=== PATIENT | female | born 1990 | race Caucasian/White ===

== ENCOUNTER → 2022-03-22 10:42 | Outpatient (CLI) | payer OTHER, SELFPAY ==
--- NOTE | 2022-03-22 | DI.US.S_ITS ---
PROCEDURE: US OB >= 14 WEEKS FETUS INDICATIONS: 20 WEEK ANATOMY SCAN OUTSIDE/PRIOR DATING DATA: Last menstrual period (LMP): October 29, 2021. LMP-based estimated date of delivery (ROSEMARY): August 05, 2022. First dating scan (date and location): [facility], March 22, 2022. Estimated date of delivery (ROSEMARY) from first dating scan: TECHNIQUE: Real-time scanning was performed of the fetus, with image documentation and biometric measurements. Endovaginal scanning: Not performed COMPARISON: None. FINDINGS: General: A single living intrauterine gestation is present. Presentation: Vertex. Placenta: Placental position is posterior , without previa. Amniotic fluid index: 16 cm, normal range is 5-24 cm. heart rate: 140 beats per minute. Maternal cervical canal: 5.2 cm long. Normal lower limit is 2.5 cm. biometrics: Biparietal diameter: 5.0 cm, 21 weeks, 1 day Head circumference: 18.6 cm, 20 weeks, 6 days Abdominal circumference: 16.4 cm, 21 weeks, 3 days Femur length: 3.4 cm, 20 weeks, 5 days Clinically estimated gestational age: 21 weeks, 0 days Composite gestational age from present scan: 21 weeks, 0 days Estimated weight and percentile: 400 g, 67% Anatomic survey: Neuro: Ventricles are non-dilated at less than 10 mm. Cisterna magna is normal at 3-11 mm. Cerebellum is normal in size and morphology. Nuchal skin fold: Normal at less than 6 mm between 14-21 weeks gestational age. Face: Nose and lips, facial profile are normal. Spine: No evidence for spina bifida. Heart: 4-chambered heart is present, with normal ventricular outflow tracts. Diaphragm: Diaphragm is intact. Stomach: Left-sided stomach is present. Kidneys: No hydronephrosis. Normal is less than 5 mm in 2nd trimester, less than 7 mm in 3rd trimester. Cord: 3-vessel cord has orthotopic insertion. Bladder: Normal in size. Extremities: All 4 extremities identified. IMPRESSION: No sonographic anatomic abnormalities. We strive to produce accurate, complete, and clear reports of imaging services. To assist us in improving patient care, this report was composed using standard report templates and voice recognition software. Therefore, it may contain abnormal punctuation, insertions and/or omissions. Occasional wrong-word or sound-alike substitutions may occur. Though we review the report and make efforts to correct it, we do recommend that the report be read carefully in proper context to recognize any text inaccuracies. Dictated by: Temitope Bennett M.D. on 03/22/2022 at 17:20 Approved by: Temitope Bennett M.D. on 03/22/2022 at 17:24
== END ==
LOC: US 10:46
PROVIDERS: Referring Provider Nurse Practitioner Obstetrics & Gynecology; Visit Provider Nurse Practitioner Obstetrics & Gynecology
DX: Z34.92 Encounter for supervision of normal pregnancy, unspecified, second trimester (principal); Z3A.21 21 weeks gestation of pregnancy
CPT/HCPCS: 76801; 76811

== ENCOUNTER → 2022-05-03 06:52 | Outpatient (CLI) | payer OTHER, SELFPAY ==
[2022-05-03 07:51] LABS: Hematocrit 32.5 % (36-46); Hemoglobin 11.4 g/dL (12.0-16.0); Mean Corpuscular HGB Conc 35.1 % (30-36); Mean Corpuscular Hemoglobin 30.4 PG (26-34); Mean Corpuscular Volume 86.4 fL (80-100); Platelet Count 157 X10^3/uL (150-400); Red Blood Cell Count 3.76 X10^6/uL (4.0-5.2); Red Cell Distribution Width 13.3 % (11.6-14.8); White Blood Cell Count 10.2 X10^3/uL (4.5-11.0)
[2022-05-03 08:26] LABS: Glucose Fasting 112 mg/dL (70-100)
[2022-05-03 09:23] LABS: Glucose Tol Interpretation INTERPRETATION
[2022-05-03 09:44] LABS: Glucose 1 Hour 190 mg/dL (70-170)
[2022-05-03 10:31] LABS: Glucose 2 Hour 178 mg/dL (70-140)
== END ==
PROVIDERS: Referring Provider Nurse Practitioner Obstetrics & Gynecology; Visit Provider Nurse Practitioner Obstetrics & Gynecology
DX: Z34.90 Encounter for supervision of normal pregnancy, unspecified, unspecified trimester (principal); Z13.1 Encounter for screening for diabetes mellitus; Z3A.26 26 weeks gestation of pregnancy
CPT/HCPCS: 36415; 82951; 82952; 85027

== ENCOUNTER → 2022-05-11 15:20 | Outpatient (CLI) | payer OTHER, SELFPAY ==
--- NOTE | 2022-05-12 17:29 | DIAB.GDA ---
Initial Gestational Diabetes Assessment Name: Gris Alcantara Date: 05/11/22 Time: 340-5p Dx: Gestational Diabetes Provider: Nayeli Bennett Weeks: 28 Gris presents today for initial visit regarding GDM. Denies T2Dm in family, maternal grandmother with PDm. Possible PMH of PCOS per her report (h/o struggling with wt and hirsutism). Is tearful today recalling the way she was eating prior to diagnosis. Feels responsible for diagnosis. Discussed this in depth. Tracking food intake. Great veggie intake. Choosing high fiber foods. Pairing pro with carbs. Current carb intake is moderate to low for . Certainly could increase carb intake at lunch or dinner (15-20g per serving). Gris is having significant hyperglycemia in the morning likely r/t hormones. Does not appear to be over eating carbs. Reports regular activity. Anthropometrics: Ht: 67 Wt: 212# (last visit - reported) Prepregnancy wt: 195# Physical Activity: walking g1.5 mi in the morning daily. Planning on adding evening walk. Self-Monitoring Blood Glucose: 04/25 elevated FBG, 04/25 elevatev pc breakfast, / elevated lunch, no elevations at dinner. Current BG pattern seems consistent with hormones impacting insulin resistance. would likely benefit form medication management. Date Pre Post Pre Post Pre Post HS 05/05 110 130 84 124 05/06 95 129 107 119 05/07 108 151 110 118 05/08 110 148 117 100 05/09 115 157 114 111 05/10 113 117 143 80 05/11 128 143 91 Diabetes Medications: None Pertinent Labs: OGTT: 112, 190, 178 Intervention: This participant was very receptive. Provided appropriate educational handouts. Discussed the following topics: GDM pathophysiology and impact of hyperglycemia on mom and baby Emotions about GDM diagnosis and the hormone/genetic implications, héctor if PCOS is a factor Risk for T2DM for mom and baby in the future Ways to reduce risk T2DM Plate Method, meal timing, carb counting, pairing macronutrients and spreading out CHO for better BG management Blood glucose goals (FBG: <95 and 1 hour <140 mg/dL); importance of checking 4x per day (FBG and pc) Impact of macronutrients on blood glucose Recommended servings for carbohydrates at meals and snacks Brainstormed appropriate meal plan based on her food preferences Discussed medication options during and encouraged her to discuss further with provider Role of physical activity and following provider guidelines for safety Goals: Add some carbs to lunch and dinner Walk after dinner Follow-up: AMBROSIO NEWELL follow-up call in one week and then 1:1 2 weeks after. Plans to see provider next week. Encouraged her to report FBG this week to provider. Gris has implemented a great diet, though low in carb for due to fear of hyperglycemia. Seems she would benefit from medication management. Lifestyle blankenship she is doing well. Encouraged her to reach sooner prn. Bree Arguello RDN, [facility] Certified Diabetes Care and Order Selector T: [phone] F: [phone] [email or web address] Thank you for this referral
== END ==
LOC: DIET 15:22
PROVIDERS: Referring Provider Nurse Practitioner Obstetrics & Gynecology; Visit Provider Nurse Practitioner Obstetrics & Gynecology
DX: O24.419 Gestational diabetes mellitus in pregnancy, unspecified control (principal); Z3A.28 28 weeks gestation of pregnancy; Z71.3 Dietary counseling and surveillance
CPT/HCPCS: G0108

== ENCOUNTER 2022-07-21 14:41 | Outpatient (CLI) | payer OTHER, SELFPAY ==
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
== END 2022-07-21 15:37 | disposition home or self-care (01) ==
LOC: LABOR 14:55 → OB 07-25 14:11
PROVIDERS: Referring Provider Nurse Practitioner Obstetrics & Gynecology; Visit Provider Nurse Practitioner Obstetrics & Gynecology
DX: O24.414 Gestational diabetes mellitus in pregnancy, insulin controlled (principal); Z3A.37 37 weeks gestation of pregnancy
CPT/HCPCS: 59025; G0378; G0379

== ENCOUNTER → 2022-07-25 14:52 | Outpatient (CLI) | payer OTHER, SELFPAY ==
--- NOTE | 2022-07-25 14:55 | DI.US.S_ITS ---
PROCEDURE: US OB LIMITED INDICATIONS: BIOPHYSICAL PROFILE. GROWTH. GESTATIONAL DIABETES. OUTSIDE/PRIOR DATING DATA: Last menstrual period (LMP): October 29, 2021. LMP-based estimated date of delivery (ROSEMARY): August 05, 2022. First dating scan (date and location): March 22, 2022, [facility]. Estimated date of delivery (ROSEAMRY) from first dating scan: August 02, 2022. TECHNIQUE: Real-time scanning was performed of the fetus, with image documentation and biometric measurements. Biophysical profile was also obtained. COMPARISON: None. FINDINGS: General: A single living intrauterine gestation is present. Presentation: Vertex. Placenta: Placental position is posterior , without previa. Amniotic fluid index: 11.9 cm, normal range is 5-24 cm. Single deepest vertical pocket is 6.4 cm. heart rate: 132 beats per minute. Maternal cervical canal: Not well visualized biometrics: Biparietal diameter: 9.3 cm, 38 weeks, 0 days Head circumference: 33.3 cm, 38 weeks, 0 days Abdominal circumference: 35.1 cm, 39 weeks, 0 days Femur length: 7.3 cm, 37 weeks, 3 days Clinically estimated gestational age: 38 weeks, 3 days Composite gestational age from present scan: 38 weeks, 1 day Estimated weight and percentile: 3483 g, 65% Biophysical profile: Tone: 0 points. Movement: 2 points. Respiration: 2 points. Largest pocket of fluid: 2 points. Miscellaneous: The right renal pelvis measures 11 mm in diameter in the left renal pelvis measures 11.5 mm in diameter. IMPRESSION: 1. Single live intrauterine gestation with a 6/8 biophysical profile. 2. Dilated renal pelves. Continued sonographic follow-up and follow-up recommended. 3. Appropriate growth at the 65th percentile for weight. We strive to produce accurate, complete, and clear reports of imaging services. To assist us in improving patient care, this report was composed using standard report templates and voice recognition software. Therefore, it may contain abnormal punctuation, insertions and/or omissions. Occasional wrong-word or sound-alike substitutions may occur. Though we review the report and make efforts to correct it, we do recommend that the report be read carefully in proper context to recognize any text inaccuracies. Dictated by: Temitope Bennett M.D. on 07/25/2022 at 16:51 Approved by: Temitope Bennett M.D. on 07/25/2022 at 16:55
== END ==
PROVIDERS: Referring Provider Nurse Practitioner Obstetrics & Gynecology; Visit Provider Nurse Practitioner Obstetrics & Gynecology
DX: O09.93 Supervision of high risk pregnancy, unspecified, third trimester (principal); O24.414 Gestational diabetes mellitus in pregnancy, insulin controlled; Z3A.38 38 weeks gestation of pregnancy
CPT/HCPCS: 76815; 76819

== ENCOUNTER 2022-07-28 07:05 | Inpatient (IN) | payer OTHER, SELFPAY ==
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
[2022-07-28 09:00] LABS: COVID19 -Nasal RAPID Negative (Negative)
--- NOTE | 2022-07-28 12:17 | PM.OBPNLAB ---
Date/Time Date Patient Seen: 07/28/22 Time Patient Seen: 12:00 Pain Control Pain control: tolerating well Comments: Was able to go to breakfast with increasing contraction frequency and intensity. Johnson balloon came out with lots of bloody show at 1140. Contractions have persisted, but are less intense. VS: BP 133/80, HR 88bpm, T 36.1C Temporal. Pelvic Exam Dilation (cm): 6 Effacement (%): 80 station: -2 Amniotic membrane status: Intact Contractions Monitor mode: External Pitocin rate (mU/min): 0 Contraction frequency (min): 3 Contraction duration (min): 1 Contraction pattern: Regular Contraction intensity: Mild Status status: Category l Heart Rate Baseline: 130 Monitor Accelerations: Present Monitor Decelerations: Absent Monitor Variability: Moderate Assessment and Plan Assessment: induction ongoing Plan: begin patient augmentation Comments: RN now available for IOL. IV and labs, then pitocin augmentation, per protocol. Consultation requested w/ for management of GDMA2. Labor support PRN. Reassess in 4 hours or sooner, PRN.
[2022-07-28 13:48] LABS: Add Manual Diff / Slide Review NO; Basophils Absolute Auto 0 /uL (0-100); Basophils Percent Auto 0.3 % (0-2); Eosinophils Absolute Auto 100 /uL (0-450); Eosinophils Percent Auto 0.4 % (2-4); Hematocrit 35.2 % (36-46); Hemoglobin 11.8 g/dL (12.0-16.0); Lymphocytes Absolute Auto 1400 /uL (1100-4500); Mean Corpuscular HGB Conc 33.4 % (30-36); Mean Corpuscular Volume 83.9 fL (80-100); Monocytes Absolute Auto 500 /uL (0-900); Monocytes Percent Auto 3.9 % (3-14); Neutrophils Absolute Auto 11900 /uL (1500-7000); Neutrophils Percent Auto 85.4 % (50-75); Platelet Count 186 X10^3/uL (150-400); Red Cell Distribution Width 14.7 % (11.6-14.8)
[2022-07-28] MEDS: OXYTOCIN PREMIX 30 UNIT/500 ML PLAST..BAG IV (13:58)
[2022-07-28 14:44] VITALS: BP 130/82
--- NOTE | 2022-07-28 16:35 | PM.OBPNLAB ---
Date/Time Date Patient Seen: 07/28/22 Time Patient Seen: 16:35 Pain Control Pain control: tolerating well Comments: Moving, sitting on a ball and ambulating in her room. Feeling frequent, mild contractions, still not as strong as before the balloon came out. VS: BP 130/82, HR 92bpm, T 36.2C Temporal Pelvic Exam Dilation (cm): 6 Effacement (%): 80 station: -2 Amniotic membrane status: Intact Comments: CE Deferred, no change in contraction intensity Contractions Monitor mode: External Pitocin rate (mU/min): 12 Contraction frequency (min): 2 Contraction pattern: Regular Contraction intensity: Mild Status status: Category l Heart Rate Baseline: 135 Monitor Accelerations: Present Monitor Decelerations: Absent Monitor Variability: Moderate Assessment and Plan Assessment: induction ongoing Plan: continuous present management Comments: Will consider AROM if contractions do not become stronger in the next 2 hours. Reassess in 2 hours.
--- NOTE | 2022-07-28 22:51 | P.PCNOB_ITS ---
Events: Gestational Diabetes Labor & Delivery Delivery date: 07/28/22 Intrapartal Events: None Cervical ripening method: per Johnson bulb protocol Induction method: per pitocin protocol Delivery augmentation: rupture of membranes Delivery monitor: external FHT and external uterine Route of delivery: Episiotomy description: None L&D Laceration Description: Perineal - 1st Degree Delivery repair: chromic (3.0) Quantitative Blood Loss: 200 Anesthesia Type: None Narrative: Gris labored well without anesthesia. She got out of the tub with increased rectal pressure and moved to the bed. Pitocin had been decreased to 6mu/min by that time (max dose 16mu/min). Was presumed complete with spontaneous urge to push. Pushed effectively with coaching and encouragement. NSVB of a vigorous baby boy in ML position, sommersaulted through a single loose nuchal cord. Shoulder's required McRobert's maneuver. was placed on maternal abdomen for drying and skin to skin. Pitocin was increased to 250mL/hr for AMTSL. After cessation of pulsation, the cord was double clamped by CNM and cut by patient's mother. Cord blood sample was collected. Gentle cord traction and a single maternal push led to spontaneous, Schultze delivery of an apparently intact placenta, membranes and 3VC. Vagina and perineum inspected and 1st degree perineal laceration repaired under 1% lidocaine local with 3.0 Chromic in the usual fashion. Good approximation and hemostasis achieved. QBL 200mL. Both mother and baby stable and skin to skin as I left the room. [place] Baby 1: gender: Male Presentation: vertex Position: Right Occiput Anterior Placenta delivery description: Spontaneous Cord Vessel Description: 3 Vessels, Nuchal Cord and Loose score (1 min): 8 score (5 min): 9 weight: 3.524 kg Plan for aftercare: Routine care
[2022-07-29] MEDS: KETOROLAC 30 MG/ML VIAL IV (01:00)
[2022-07-29] MEDS: IBUPROFEN 600 MG TABLET PO (10:59)
--- NOTE | 2022-07-29 17:01 | P.DS_ITS ---
Discharge Providers Provider Date of admission: 07/28/22 07:05 Discharge Date: 07/29/22 Primary care physician: Doctor Sara MD Consults: 07/29/22 22:49 Consult to Acute Dialysis Registered Nurse Routine Comment: Discharge provider: Nayeli Bennett CNM Summary Hospital Course Date Patient Seen: 07/29/22 Time Patient Seen: 17:01 Diagnoses: O70.0 Hospital Course: PPD1: Stable s/p NSVB w/ 1st degree perineal laceration. Voiding, ambulating and independently. Tolerating a general diet. Pain is well controlled w/ PO medication. Vaginal bleeding is light, without clots. Eager for discharge to home. Peripartum Data Delivery Method: Natural Vaginal Laceration Description: Perineal - 1st Degree Episiotomy description: None 1: Gender: Male Disposition of : home Discharge Diagnosis (1) First degree perineal laceration during delivery: Status: Acute Time Spent with Patient Time attestation: Total time spent providing and/or coordinating discharge services: Objective Labs Result Diagrams: 07/28/22 13:15 Exam Vital Signs (past 8 hours): BP 115/78, HR 99bpm, RR 16/min, T 97.1F Temporal Other: Fundus form @ u-1, lochia scant, no clots, perineum well approximated Discharge Plan Discharge Plan Patient Disposition: Home Discharge orders & Medications Prescriptions: New ibuprofen 600 mg Tablet 600 mg PO Q6HR PRN (Reason: Pain, Mild (1-3)) 14 Days Qty: 40 0RF Discontinued Levemir FlexTouch U-100 Insuln 100 unit/mL (3 mL) insulin pen SUBCUT metformin 500 mg tablet 1,500 mg Follow up/Referrals: Doctor Ruiz MD [Primary Care Provider] - Nayeli Bennett CNM [[facility]] - (Follow-up by Telehealth 08/11/22 @ 2:15pm Follow-up in office 09/09/22 @ 10:15am) Diet/Activity/Treatments Diet: Regular Skin/Wound/Dressing Care Report to your healthcare provider any signs of infection, such as:: chills, fever, increased pain, unusual drainage and unusual redness Visit Report/Discharge Packet Instructions: DI for Depression Discharge Data Primary Care Provider: Doctor Sara
== END 2022-07-29 18:45 | disposition home or self-care (01) | DRG 807 ==
PROVIDERS: Admitting Provider Nurse Practitioner Obstetrics & Gynecology; Referring Provider Nurse Practitioner Obstetrics & Gynecology; Visit Provider Nurse Practitioner Obstetrics & Gynecology
DX: O24.424 Gestational diabetes mellitus in childbirth, insulin controlled (principal); Z37.0 Single live birth; Z3A.38 38 weeks gestation of pregnancy; Z79.84 Long term (current) use of oral hypoglycemic drugs; Z79.4 Long term (current) use of insulin; O70.0 First degree perineal laceration during delivery; O69.81X0 Labor and delivery complicated by cord around neck, without compression, not applicable or unspecified; Z20.822 Contact with and (suspected) exposure to COVID-19
CPT/HCPCS: 36415; 59050; 85025; 86850; 86900; 86901; 87635; C9803; G0379; J1885; J2590

== ENCOUNTER → 2022-11-03 07:28 | Outpatient (CLI) | payer OTHER, SELFPAY ==
[2022-11-03 09:51] LABS: Glucose Tol Interpretation INTERPRETATION
[2022-11-03 10:38] LABS: Glucose 1 Hour 128 mg/dL (70-170)
[2022-11-03 10:43] LABS: Glucose Fasting 90 mg/dL (70-100)
[2022-11-03 12:37] LABS: Glucose 2 Hour 113 mg/dL (70-140)
== END ==
PROVIDERS: Referring Provider Nurse Practitioner Obstetrics & Gynecology; Visit Provider Nurse Practitioner Obstetrics & Gynecology
DX: Z13.1 Encounter for screening for diabetes mellitus (principal); Z86.32 Personal history of gestational diabetes
CPT/HCPCS: 36415; 82951; 82952

== ENCOUNTER → 2024-10-13 07:11 | Outpatient (CLI) | payer OTHER, SELFPAY ==
--- NOTE | 2024-10-13 | DI.US.S_ITS ---
PROCEDURE: US OB >= 14 WEEKS FETUS INDICATIONS: 20WK ANATOMY SCAN OUTSIDE/PRIOR DATING DATA: Last menstrual period (LMP): 05/14/2024 LMP-based estimated date of delivery (ROSEMARY): 02/18/2025 The calculations are made using the working ROSEMARY of 02/18/2025 TECHNIQUE: Real-time scanning was performed of the fetus, with image documentation and biometric measurements. Endovaginal scanning: Not performed COMPARISON: [facility], , OB >= 14 WEEKS FETUS, 03/22/2022, 12:16. FINDINGS: General: A single living intrauterine gestation is present. Presentation: Breech Placenta: Placental position is posterior, without previa. Amniotic fluid index: 16.3 cm, normal range is 5-24 cm. Single deepest vertical pocket is 4.9 cm. heart rate: 155 beats per minute. Maternal cervical canal: Closed and measures 5.8 cm long. Normal lower limit is 2.5 cm. biometrics: Biparietal diameter: 5.3 cm, 22 weeks, 1 day. Head circumference: 19.5 cm, 21 weeks, 5 days. Abdominal circumference: 18.4 cm, 23 weeks, 1 day. Femur length: 3.7 cm, 21 weeks, 4 days. Clinically estimated gestational age: 21 weeks, 5 days Composite gestational age from present scan: 22 weeks, 1 day. Estimated weight and percentile: 499 g, 78%. Anatomic survey: Neuro: Ventricles are non-dilated at less than 10 mm. Cisterna magna is normal at 3-11 mm. Cerebellum is normal in size and morphology. Nuchal skin fold: Normal at less than 6 mm between 14-21 weeks gestational age. Face: Nose and lips, facial profile are normal. Spine: No evidence for spina bifida. Heart: 4-chambered heart is present, with normal ventricular outflow tracts. Diaphragm: Diaphragm is intact. Stomach: Left-sided stomach is present. Kidneys: No hydronephrosis. Bilateral UPJ size are in the upper limits of normal at 5 and 4 mm. Normal is less than 5 mm in 2nd trimester, less than 7 mm in 3rd trimester. Cord: 3-vessel cord has orthotopic insertion. Bladder: Normal in size. Extremities: All 4 extremities identified. IMPRESSION: 1. Single live intrauterine gestation with fetus in breech presentation. heart rate is 155 beats per minute. Normal YUKI at 16.3 cm. Cervix is closed and measures 5.8 cm in length. 2. Normal growth. Estimated weight is at 78%. 3. Bilateral UPJ size is measured at the upper limits of normal as above. Rest of the anatomic survey is normal. We strive to produce accurate, complete, and clear reports of imaging services. To assist us in improving patient care, this report was composed using standard report templates and voice recognition software. Therefore, it may contain abnormal punctuation, insertions and/or omissions. Occasional wrong-word or sound-alike substitutions may occur. Though we review the report and make efforts to correct it, we do recommend that the report be read carefully in proper context to recognize any text inaccuracies. Dictated by: Ajit Sheridan M.D. on 10/13/2024 at 16:08 Approved by: Ajit Sheridan M.D. on 10/13/2024 at 16:15
== END ==
PROVIDERS: Referring Provider Advanced Practice Midwife; Visit Provider Advanced Practice Midwife
DX: Z36.89 Encounter for other specified antenatal screening (principal); O32.1XX0 Maternal care for breech presentation, not applicable or unspecified; Z3A.22 22 weeks gestation of pregnancy
CPT/HCPCS: 76811

== ENCOUNTER → 2024-10-30 07:57 | Outpatient (CLI) | payer OTHER, SELFPAY ==
[2024-10-30 08:27] LABS: Hematocrit 31.6 % (36-46); Mean Corpuscular HGB Conc 34.7 % (30-36); Mean Corpuscular Hemoglobin 30.9 PG (26-34); Mean Corpuscular Volume 89.2 fL (80-100); Platelet Count 155 X10^3/uL (150-400); Red Blood Cell Count 3.55 X10^6/uL (4.0-5.2); Red Cell Distribution Width 13.2 % (11.6-14.8); White Blood Cell Count 9.1 X10^3/uL (4.5-11.0)
[2024-10-30 08:57] LABS: Glucose Fasting 98 mg/dL (70-100)
[2024-10-30 10:11] LABS: Glucose Tol Interpretation INTERPRETATION
[2024-10-30 10:20] LABS: Glucose 1 Hour 134 mg/dL (70-170)
[2024-10-30 11:13] LABS: Glucose 2 Hour 124 mg/dL (70-140)
== END ==
PROVIDERS: Referring Provider Advanced Practice Midwife; Visit Provider Advanced Practice Midwife
DX: Z34.82 Encounter for supervision of other normal pregnancy, second trimester (principal); Z86.32 Personal history of gestational diabetes
CPT/HCPCS: 36415; 82951; 82952; 85027

== ENCOUNTER → 2024-12-18 07:32 | Outpatient (CLI) | payer OTHER, SELFPAY ==
--- NOTE | 2024-12-18 07:34 | DI.US.S_ITS ---
PROCEDURE: US OB >= 14 WEEKS FETUS INDICATIONS: GROWTH SCAN OUTSIDE/PRIOR DATING DATA: Last menstrual period (LMP): 05/14/2024. LMP-based estimated date of delivery (ROSEMARY): 02/18/2025. The calculations are made using the working ROSEMARY of 02/18/2025. TECHNIQUE: Real-time scanning was performed of the fetus, with image documentation and biometric measurements. Endovaginal scanning: No COMPARISON: [facility], , OB >= 14 WEEKS FETUS, 10/13/2024, 7:39. FINDINGS: General: A single living intrauterine gestation is present. Presentation: Vertex. Placenta: Placental position is posterior , without previa. Amniotic fluid index: 14.2 cm, normal range is 5-24 cm. Single deepest vertical pocket is 4.4 cm. heart rate: 147 beats per minute. Maternal cervical canal: 3.9 cm long. Normal lower limit is 2.5 cm. biometrics: Biparietal diameter: 7.9 cm, 31 week 4 day Head circumference: 28.5 cm, 31 week 2 day Abdominal circumference: 26.8 cm, 31 week 0 day Femur length: 5.1 cm, 30 week 6 day Clinically estimated gestational age: 31 week 1 day Composite gestational age from present scan: 31 week 1 day Estimated weight and percentile: 1678 g, 33 percentile IMPRESSION: Single live intrauterine consistent with 31 week 1 day gestation by current ultrasound We strive to produce accurate, complete, and clear reports of imaging services. To assist us in improving patient care, this report was composed using standard report templates and voice recognition software. Therefore, it may contain abnormal punctuation, insertions and/or omissions. Occasional wrong-word or sound-alike substitutions may occur. Though we review the report and make efforts to correct it, we do recommend that the report be read carefully in proper context to recognize any text inaccuracies. Approved by: Alex Cassidy M.D. on 12/18/2024 at 17:02
== END ==
PROVIDERS: Referring Provider Advanced Practice Midwife; Visit Provider Advanced Practice Midwife
DX: O24.414 Gestational diabetes mellitus in pregnancy, insulin controlled (principal); Z3A.31 31 weeks gestation of pregnancy
CPT/HCPCS: 76811

== ENCOUNTER → 2025-01-19 06:46 | Outpatient (CLI) | payer OTHER, SELFPAY ==
--- NOTE | 2025-01-19 06:46 | DI.US.S_ITS ---
PROCEDURE: US OB FOLLOW UP INDICATIONS: GROWTH SCAN OUTSIDE/PRIOR DATING DATA: Last menstrual period (LMP): 05/14/2024. LMP-based estimated date of delivery (ROSEMARY): 02/18/2025. First dating scan (date and location): Unknown Estimated date of delivery (ROSEMARY) from first dating scan: Unknown The calculations are made using the clinical ROSEMARY of 02/18/2025. TECHNIQUE: Real-time scanning was performed of the fetus, with image documentation and biometric measurements. COMPARISON: [facility], , OB >= 14 WEEKS FETUS, 12/18/2024, 7:45. FINDINGS: General: A single living intrauterine gestation is present. Presentation: Vertex. Placenta: Placental position is posterior , without previa. Amniotic fluid index: 12.2 cm, normal range is 5-24 cm. Single deepest vertical pocket is 5.1 cm. heart rate: 139 beats per minute. Maternal cervical canal: Not applicable biometrics: Biparietal diameter: 8.8 cm 35 weeks 5 days Head circumference: 32.2 cm 36 weeks 3 days Abdominal circumference: 32 cm 35 weeks 6 days Femur length: 6.9 cm 35 weeks 2 days Clinically estimated gestational age: 35 weeks 5 days Composite gestational age from present scan: 35 weeks 6 days Estimated weight and percentile: 2750 g 51st percentile Other: Right renal pelvis measures 8 mm. Biophysical profile: Tone: 2 Movement: 2 Respiration: 0 Largest pocket: 2 IMPRESSION: Single live intrauterine with gestational age of 35 weeks 6 days. BPP 6/8. Right renal pelvis measures 8 mm. We strive to produce accurate, complete, and clear reports of imaging services. To assist us in improving patient care, this report was composed using standard report templates and voice recognition software. Therefore, it may contain abnormal punctuation, insertions and/or omissions. Occasional wrong-word or sound-alike substitutions may occur. Though we review the report and make efforts to correct it, we do recommend that the report be read carefully in proper context to recognize any text inaccuracies. Dictated by: Violet Estrella M.D. on 01/19/2025 at 15:41 Approved by: Violet Estrella M.D. on 01/19/2025 at 15:45
== END ==
PROVIDERS: Referring Provider Advanced Practice Midwife; Visit Provider Advanced Practice Midwife
DX: O24.414 Gestational diabetes mellitus in pregnancy, insulin controlled (principal); Z3A.35 35 weeks gestation of pregnancy
CPT/HCPCS: 76816; 76819

== ENCOUNTER 2025-02-13 13:46 | Outpatient (CLI) | payer OTHER, SELFPAY ==
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
== END 2025-02-13 14:20 | disposition home or self-care (01) ==
LOC: LABOR 14:12 → OB 15:34
PROVIDERS: Referring Provider Nurse Practitioner Obstetrics & Gynecology; Visit Provider Nurse Practitioner Obstetrics & Gynecology
DX: O47.1 False labor at or after 37 completed weeks of gestation (principal); O24.414 Gestational diabetes mellitus in pregnancy, insulin controlled; Z3A.39 39 weeks gestation of pregnancy
CPT/HCPCS: 59025; G0378; G0379

== ENCOUNTER 2025-02-14 08:54 | Inpatient (IN) | payer OTHER, SELFPAY ==
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
[2025-02-14 09:48] VITALS: BP 134/88; PULSE 96; TEMP 36.2
[2025-02-14 09:57] LABS: Add Manual Diff / Slide Review NO; Basophils Absolute Auto 100 /uL (0-100); Basophils Percent Auto 0.6 % (0-2); Eosinophils Absolute Auto 100 /uL (0-450); Eosinophils Percent Auto 0.5 % (2-4); Hematocrit 35.9 % (36-46); Hemoglobin 12.3 g/dL (12.0-16.0); Lymphocytes Absolute Auto 1400 /uL (1100-4500); Lymphocytes Percent Auto 10.5 % (25-40); Mean Corpuscular HGB Conc 34.2 % (30-36); Mean Corpuscular Hemoglobin 29.3 PG (26-34); Mean Corpuscular Volume 85.7 fL (80-100); Monocytes Absolute Auto 700 /uL (0-900); Monocytes Percent Auto 5.1 % (3-14); Neutrophils Absolute Auto 11200 /uL (1500-7000); Neutrophils Percent Auto 83.3 % (50-75); Platelet Count 171 X10^3/uL (150-400); Red Blood Cell Count 4.19 X10^6/uL (4.0-5.2); Red Cell Distribution Width 14.4 % (11.6-14.8); White Blood Cell Count 13.4 X10^3/uL (4.5-11.0)
[2025-02-14 10:23] VITALS: BP 134/88
--- NOTE | 2025-02-14 11:05 | PM.OBPNLAB ---
Date/Time Date Patient Seen: 02/14/25 Time Patient Seen: 11:05 Pain Control Comments: Gris reports contractions have gotten stronger, requesting AROM. Breathing well through contractions, using brush in hand and TENS unit for comfort measures. Good support from mother and . VS: BP 131/83, HR 79, 36.2C oral, O2 sat 98% Pelvic Exam Dilation (cm): 5 Effacement (%): 80 station: -2 Amniotic membrane status: Ruptured (AROM 1058/ light meconium) Contractions Monitor mode: External Contraction frequency (min): 3 Contraction duration (min): 1 (1-1.5) Contraction pattern: Regular Contraction intensity: Strong/Firm Status status: Category ll Heart Rate Baseline: 125 Monitor Accelerations: Present Monitor Decelerations: Early Monitor Variability: Moderate Assessment and Plan Assessment: active labor Plan: continuous present management Comments: Encouraged position changes and tub if desired for comfort. Recheck in 4 hours or as needed
--- NOTE | 2025-02-14 12:18 | PM.OBPRVD ---
Events: Gestational Diabetes (managed with insulin & metformin) Labor & Delivery Delivery date: 02/14/25 Delivery Time: 11:42 Intrapartal Events: None Cervical ripening method: per Johnson bulb protocol Induction method: none Delivery augmentation: rupture of membranes Delivery monitor: external FHT and external uterine Route of delivery: Indication for instrumentation: nonreassuring FHR tracing Episiotomy description: None L&D Laceration Description: Perineal - 1st Degree Delivery repair: chromic Quantitative Blood Loss: 100 Anesthesia Type: None Narrative: Gris is a 34 y.o. at 39 weeks 3 days. She arrived for IOL for GDMA2 in active labor. Contractions became painful and regular after arrival, requested AROM after second cervical exam with minimal cervical change. AROM at 1058 for light meconium. Harvest rectal pressure while standing at bedside, strong urge to push after changing to left lateral position and was presumed complete at that time. RT called to standby for the . Pushed for a short second stage. Category II tracing throughout labor after AROM. NSVB of a vigorous male in the ML position at 1142, somersaulted through one loose nuchal, no additional maneuvers for delivery of the shoulders. placed skin to skin on maternal abdomen. Apgars 8/9, remained in maternal arms. Pitocin started at 250cc/hr for AMTSL. After cessation of pulsing the cord was clamped by SNM and cut by grandmother. Cord blood hold sample was collected. Apparently intact placenta delivered spontaneously with one maternal push via Schultze. Perineal inspection revealed first degree laceration, which was repaired with single interrupted 3-0 Chromic under 1% lidocaine local. Fundus firm. QBL 100ml. [place] Baby 1: Infant gender: Male Presentation: vertex Position: Right Occiput Anterior Placenta delivery description: Spontaneous Cord Vessel Description: 3 Vessels score (1 min): 8 score (5 min): 9 weight: 3.449 kg Plan for aftercare: Routine care
[2025-02-14] MEDS: LIDOCAINE 1% 20 ML INJ (12:36)
[2025-02-14] MEDS: LACTATED RINGERS 1,000 ML 100 ML IV (12:37)
[2025-02-14] MEDS: OXYTOCIN PREMIX 30 UNIT/500 ML PLAST..BAG 200 UNIT IV (12:37)
[2025-02-14] MEDS: KETOROLAC 30 MG/ML VIAL IV (13:02)
[2025-02-15] MEDS: IBUPROFEN 600 MG TABLET PO ×2 (00:12→08:00)
--- NOTE | 2025-02-15 09:25 | PM.OBDS.1 ---
Discharge Providers Provider Date of admission: 02/14/25 08:54 Discharge Date: 02/15/25 Primary care physician: CYNTHIA Patterson CNM Consults: 02/15/25 11:58 Consult to Therapy Tech Routine Comment: Discharge provider: Nayeli Bennett CNM Summary Hospital Course Date Patient Seen: 02/15/25 Time Patient Seen: 09:39 Diagnoses: O70, O24.429 Hospital Course: Arrived for IOL for GDMA2 in spontaneous labor after Johnson ballon fell out the day before. PPD1: Stable s/p NSVB with a 1st degree perineal laceration. Voiding, ambulating and ambulating independently. Tolerating a general diet. Minimal pain is well controlled with ibuprofen and Tyelnol, does not want a home Rx for ibuprofen. Vaginal bleeding is light to moderate without clots. She is eager and feeling ready for discharge to home. is home with their toddler, but coming back in soon. Peripartum Data Infant Delivery Method: Natural Vaginal Laceration Description: Perineal - 1st Degree Episiotomy description: None 1: Gender: Male Disposition of : home Discharge Diagnosis (1) Gestational diabetes requiring insulin: Status: Acute (2) First degree perineal laceration during delivery: Status: Acute Problem Details: routine course Status at Discharge Cognitive/behavioral status at discharge: oriented and calm Functional status at discharge: independent ambulation Overall status at discharge: patient is progressing back to baseline Time Spent with Patient Time attestation: Total time spent providing and/or coordinating discharge services: Time spent: Less than 30 minutes Objective Labs 02/14/25 09:34 Labs: Laboratory Results - last 24 hr 02/14/25 09:34 WBC 13.4 H RBC 4.19 Hgb 12.3 Hct 35.9 L MCV 85.7 MCH 29.3 MCHC 34.2 RDW 14.4 Plt Count 171 Neut % (Auto) 83.3 H Lymph % (Auto) 10.5 L Reynolds % (Auto) 5.1 Eos % (Auto) 0.5 L Baso % (Auto) 0.6 Neut # (Auto) 14710 H Lymph # (Auto) 1400 Reynolds # (Auto) 700 Eos # (Auto) 100 Baso # (Auto) 100 Blood Type A Positive Antibody Screen Negative Exam Vital Signs (past 8 hours): BP 123/76, HR 87, RR 16, T 97.8F Temporal, SpO2 98% on RA Const General: cooperative, healthy appearing, comfortable and well groomed Nutritional Appearance: average body habitus Other: Fundus firm @ U-1, lochia light, perineum well approximated Psych Appearance: grossly normal Speech and Movement: speech and movement normal Affect: normal affect Discharge Plan Discharge Plan Patient Disposition: Home Discharge orders & Medications Prescriptions: Discontinued metformin 750 mg tablet extended release 24 hr 1,500 mg PO ONCE PM insulin glargine-yfgn [Semglee(insulin glarg-yfgn)Pen] 100 unit/mL (3 mL) insulin pen 50 unit SUBCUT Patient Comments: INJECT 8 UNITS UNDER THE SKIN AT BEDTIME AND TITRATE DIRECTED BY CDE TO MAX DOSE OF 50 UNITS PER DAY Follow up/Referrals: Nayeli Bennett, DAVE [[employer] Superintendent] - (Sunday, February 27, 2025 @ 11:45m- 2 week Phone appointment Sunday, March 30, 2025 @ 11:15am- 6 week Office appointment) Diet/Activity/Treatments Diet: Diet as Tolerated and Regular Activity: bed rest x 2 weeks, no heavy lifting for 4 weeks, pelvic rest x 6 weeks Skin/Wound/Dressing Care Report to your healthcare provider any signs of infection, such as:: chills, fever, increased pain, unusual drainage and unusual redness Visit Report/Discharge Packet Instructions: Depression Stand Alone Forms: Patient Portal/API, Stroke Signs & Symptoms Discharge Data Attending Provider: Nayeli Bennett Admit Date/Time: 02/14/25 08:54
== END 2025-02-15 12:50 | disposition home or self-care (01) | DRG 807 ==
PROVIDERS: Admitting Provider Nurse Practitioner Obstetrics & Gynecology; Referring Provider Nurse Practitioner Obstetrics & Gynecology; Visit Provider Nurse Practitioner Obstetrics & Gynecology
DX: O24.424 Gestational diabetes mellitus in childbirth, insulin controlled (principal); Z37.0 Single live birth; O76 Abnormality in fetal heart rate and rhythm complicating labor and delivery; O24.425 Gestational diabetes mellitus in childbirth, controlled by oral hypoglycemic drugs; O70.0 First degree perineal laceration during delivery; Z3A.39 39 weeks gestation of pregnancy
CPT/HCPCS: 36415; 59025; 59050; 85025; 86850; 86900; 86901; G0378; G0379; J1885; J2590

== ENCOUNTER → 2025-04-16 08:09 | Outpatient (CLI) | payer OTHER, SELFPAY ==
[2025-04-16 09:16] LABS: Glucose Fasting 99 mg/dL (70-100)
[2025-04-16 10:28] LABS: Glucose 1 Hour 185 mg/dL (70-170)
[2025-04-16 10:39] LABS: Glucose Tol Interpretation INTERPRETATION
[2025-04-16 11:37] LABS: Glucose 2 Hour 106 mg/dL (70-140)
== END ==
PROVIDERS: Referring Provider Nurse Practitioner Obstetrics & Gynecology; Visit Provider Nurse Practitioner Obstetrics & Gynecology
DX: Z13.1 Encounter for screening for diabetes mellitus (principal); Z86.32 Personal history of gestational diabetes
CPT/HCPCS: 36415; 82951; 82952